=== PATIENT | female | born 1945 | race Caucasian/White ===

== ENCOUNTER 2016-11-03 14:01 | Outpatient (CLI) | payer MEDICARE | END 2016-11-03 14:02 | disposition home or self-care (01) | DX: I10 Essential (primary) hypertension (principal); I25.10 Atherosclerotic heart disease of native coronary artery without angina pectoris; R73.01 Impaired fasting glucose ==

== ENCOUNTER 2016-11-15 14:27 | Outpatient (CLI) | payer MEDICARE | END 2016-11-15 14:28 | disposition home or self-care (01) | DX: F32.9 Major depressive disorder, single episode, unspecified (principal); F41.9 Anxiety disorder, unspecified; R53.83 Other fatigue ==

== ENCOUNTER 2017-09-04 14:39 | Outpatient (CLI) | payer MEDICARE ==
--- NOTE | 2017-09-04 16:25 | XRAY Report ---
RIGHT HIP AND PELVIS: 09/04/2017 CLINICAL INDICATION: Pain. FINDINGS: Frontal view of the right hip and pelvis was obtained. A frogleg lateral view was also joe dvertently obtained. No previous pelvic film is available for comparison. There is mild bilateral hip osteoarthritis. There is no evidence of acute fracture or dislocation. No radiopaque foreign body is seen in the soft tissues. IMPRESSION: MILD RIGHT HIP OSTEOARTHRITIS. JOB #: [id number] EXT JOB #:
== END 2017-09-04 14:40 | disposition home or self-care (01) ==
LOC: DI 14:39
PROVIDERS: ATTEND Physician Assistant Medical
DX: M16.11 Unilateral primary osteoarthritis, right hip (principal)
CPT/HCPCS: 72170

== ENCOUNTER 2017-12-15 13:42 | Outpatient (CLI) | payer MEDICARE ==
--- NOTE | 2017-12-15 15:58 | XRAY Report ---
FOUR VIEW RIGHT WRIST: 12/15/2017 CLINICAL INDICATION: Fall, pain. FINDINGS: AP, lateral, oblique, scaphoid views of the right wrist demonstrate moderate osteoarthritis. An old, healed ulnar styloid fracture is noted. There is no evidence of acute fracture or dislocation. No foreign body is seen in the soft tissues. IMPRESSION: MODERATE OSTEOARTHRITIS. NO EVIDENCE OF ACUTE FRACTURE. TD: 12/15/2017 15:57
--- NOTE | 2017-12-15 16:00 | XRAY Report ---
THREE VIEW LEFT WRIST: 12/15/2017 CLINICAL INDICATION: Fall, pain. FINDINGS: AP, lateral, and oblique views of the left wrist demonstrate a minimally impacted distal radial fracture, without definite intraarticular extension, best seen on the lateral view. An ulnar styloid fracture is also noted. Osteoarthritis is seen in the wrist joints. No scaphoid fracture is seen. IMPRESSION: MINIMALLY IMPACTED DISTAL RADIAL FRACTURE. ULNAR STYLOID FRACTURE. TD: 12/15/2017 15:59
== END 2017-12-15 13:43 | disposition home or self-care (01) ==
LOC: DI.S 13:42
PROVIDERS: ATTEND Physician Assistant Medical
DX: S52.502A Unspecified fracture of the lower end of left radius, initial encounter for closed fracture (principal); S52.612A Displaced fracture of left ulna styloid process, initial encounter for closed fracture; M19.031 Primary osteoarthritis, right wrist; M19.032 Primary osteoarthritis, left wrist

== ENCOUNTER 2018-02-09 11:29 | Outpatient (CLI) | payer MEDICARE ==
[2018-02-09 17:56] LABS: BASOPHILS % (AUTO) 0.6 %; EOSINOPHILS # (AUTO) 0.2 10^3/uL (0.0-0.7); EOSINOPHILS % (AUTO) 2.8 %; HGB - HEMOGLOBIN 12.2 g/dL (12.0-16.0); LYMPHOCYTES # (AUTO) 1.5 10^3/uL (1.5-3.5); MEAN CORPUSCULAR HEMOGLOBIN 29.3 pg (27.0-31.0); MEAN CORPUSCULAR HGB CONC 32.9 g/dL (32.0-36.0); MEAN PLATELET VOLUME 10.2 fL (7.9-10.8); MONOCYTES # (AUTO) 0.5 10^3/uL (0.0-1.0); NEUTROPHILS # (AUTO) 3.8 10^3/uL (1.5-6.6); NEUTROPHILS % (AUTO) 62.6 %; PLT - PLATELET COUNT 168 10^3/uL (130-450); RED BLOOD COUNT 4.18 10^6/uL (4.20-5.40); RED CELL DISTRIBUTION WIDTH 14.8 % (12.0-15.0); WHITE BLOOD COUNT 6.1 x10^3/uL (4.8-10.8)
[2018-02-09 18:48] LABS: ALBUMIN/GLOBULIN RATIO 1.5 (1.0-2.2); ALKALINE PHOSPHATASE 61 IU/L (42-121); ALT ALANINE AMINOTRANSFERASE 24 IU/L (10-60); AST ASPARTATE AMINOTRANSFERASE 28 IU/L (10-42); BILIRUBIN,TOTAL 0.4 mg/dL (0.2-1.0); BUN - BLOOD UREA NITROGEN 17 mg/dL (6-20); CALCIUM 8.8 mg/dL (8.5-10.3); CARBON DIOXIDE - CO2 27 mmol/L (21-32); CHLORIDE 106 mmol/L (101-111); CHOLESTEROL 141 mg/dL; CREATININE 0.3 mg/dL (0.4-1.0); GFR - MDRD 219 (>89); GLUCOSE 95 mg/dL (70-100); HDL CHOLESTEROL 51 mg/dL; LDL CHOLESTEROL,CALCULATED 74 mg/dL; LDL/HDL RATIO 1.5 (<4.4); SODIUM 140 mmol/L (135-145); TOTAL PROTEIN 6.6 g/dL (6.7-8.2); VLDL CHOLESTEROL 16 mg/dL
[2018-02-09 18:49] LABS: CHOL/HDL RATIO 2.8 (<4.4)
== END 2018-02-09 11:30 | disposition home or self-care (01) ==
LOC: LAB.F 11:29
PROVIDERS: ATTEND Physician Assistant Medical
DX: Z00.00 Encounter for general adult medical examination without abnormal findings (principal)
CPT/HCPCS: 36415; 80053; 80061; 83721; 85025

== ENCOUNTER 2018-04-26 15:46 | Outpatient (CLI) | payer MEDICARE ==
--- NOTE | 2018-04-27 08:42 | XRAY Report ---
Procedure Date: 04/26/2018 Accession Number: [id number] / [id number] Procedure: XR - Hip w/Pelvis 2-3V LT CPT Code: FULL RESULT: EXAM: Hip w/Pelvis 2-3V LT DATE: 04/26/2018 4:07 PM CLINICAL HISTORY: CONTUSION L HIP, SEQUELA COMPARISON: 09/04/2017 TECHNIQUE: 1 view of the pelvis and 1 view of the hip. FINDINGS: Bones: Normal. No fracture or bone lesion. Joints: Mild osteoarthritis is stable. No dislocation. Soft Tissues: Normal. No soft tissue swelling. IMPRESSION: Stable mild osteoarthritis. RADIA
== END 2018-04-26 15:47 | disposition home or self-care (01) ==
LOC: DI 15:46
PROVIDERS: ATTEND Internal Medicine
DX: S70.02XS Contusion of left hip, sequela (principal); M16.12 Unilateral primary osteoarthritis, left hip; R10.30 Lower abdominal pain, unspecified

== ENCOUNTER 2018-07-23 12:59 | Outpatient (CLI) | payer MEDICARE ==
--- NOTE | 2018-07-23 15:59 | DEXA Report ---
Reason: ASYMPTOMATIC MENOPAUSAL STATE Procedure Date: 07/23/2018 Accession Number: [id number] / [id number] Procedure: DEX - Dexa Spine and/or Hip CPT Code: FULL RESULT: EXAM: Dexa Spine and/or Hip DATE: 07/23/2018 1:40 PM CLINICAL HISTORY: ASYMPTOMATIC MENOPAUSAL STATE TECHNIQUE: Dual energy x-ray absorptiometry (DXA) was performed on a SyncSum System. Regions measured are the AP Spine, femoral neck, and if needed forearm. COMPARISON: None. In accordance with the International Society for Clinical Densitometry (ISCD) guidelines, data from previous exams may be reanalyzed using current recommendations and techniques. This is done to allow a more accurate basis for comparison with the current study. FINDINGS: The data for the lumbar spine is as follows: BMD (g/cm/cm) T-SCORE Z-SCORE REGION L1 0.954 -1.5 0.4 L2 1.167 -0.3 1.6 L3 1.088 -0.9 0.9 L4 1.057 -1.2 0.7 TOTAL 1.068 -0.9 0.9 NOTE: All evaluable vertebrae are used for classification The data for the hip is as follows: BMD (g/cm/cm) T-SCORE Z-SCORE REGION Neck 0.731 -2.2 -0.3 TOTAL 0.799 -1.7 0.0 IMPRESSION: THE WHO CLASSIFICATION BASED ON THE INTERNATIONAL REFERENCE STANDARD IS OSTEOPENIA. THE FRACTURE RISK IS INCREASED. RECOMMENDATION: Patients with diagnosis of osteoporosis or osteopenia should have regular bone mineral density assessment. For those eligible for Medicare, routine testing is allowed once every 2 years. Testing frequency can be increased for patients who have rapidly progressing disease or for those who are receiving medical therapy to restore bone mass. COMMENT: World Health Organization (WHO) definitions for osteoporosis and osteopenia: NORMAL BMD: T-score at -1.0 or higher, fracture risk is low OSTEOPENIA BMD: T-score between -1.0 and -2.5, fracture risk is increased. OSTEOPOROSIS BMD: T-score at -2.5 or lower, fracture risk is high. National Osteoporosis Foundation recommends: 1. Obtain adequate dietary calcium (at least 1200 mg per day) and vitamin D (400-800 international units per day). 2. Participate, as appropriate, in regular weightbearing and muscle-strengthening exercise. 3. Avoid tobacco use and reduce alcohol and caffeine intake. 4. For more detailed information see the website at www.NOF.org.
== END 2018-07-23 13:00 | disposition home or self-care (01) ==
LOC: DI 12:59
PROVIDERS: ATTEND Internal Medicine
DX: M85.89 Other specified disorders of bone density and structure, multiple sites (principal); Z78.0 Asymptomatic menopausal state
CPT/HCPCS: 77080

== ENCOUNTER 2018-11-01 13:00 | Outpatient (CLI) | payer MEDICARE ==
--- NOTE | 2018-11-01 15:20 | XRAY Report ---
Reason: BACK PAIN,LUMBAR,CHRONIC Procedure Date: 11/01/2018 Accession Number: [id number] / [id number] Procedure: XR - Thoracic Spine 2 View CPT Code: FULL RESULT: EXAM: THORACIC SPINE RADIOGRAPHY EXAM DATE: 11/01/2018 02:23 PM. CLINICAL HISTORY: Chronic back pain. COMPARISON: None. TECHNIQUE: 2 views. FINDINGS: Alignment: Normal thoracic kyphosis. No vertebral body subluxation. Thoracic levoscoliosis between T4 and T12 measuring 12 degrees. Bones: Decreased bone mineralization. No fracture. No focal bone lesion. Disks: Multilevel disk space narrowing with marginal osteophyte formation. Soft Tissues: No focal opacities are evident in the lungs. The cardiac silhouette size is normal. Tortuous thoracic aorta. Post surgical changes in the sternum and mediastinum. IMPRESSION: 1. Multilevel thoracic degenerative disk disease. 2. No acute fracture or subluxation. 3. No chronic vertebral body fracture. 4. Other chronic degenerative and postsurgical changes. RADIA
--- NOTE | 2018-11-01 15:25 | XRAY Report ---
Reason: BACK PAIN,LUMBAR,CHRONIC Procedure Date: 11/01/2018 Accession Number: [id number] / [id number] Procedure: XR - Lumbar Spine Complete CPT Code: FULL RESULT: EXAM: LUMBOSACRAL SPINE RADIOGRAPHY EXAM DATE: 11/01/2018 02:23 PM. CLINICAL HISTORY: Chronic low back pain. COMPARISONS: None. TECHNIQUE: 4 views, including both oblique views. FINDINGS: Alignment: Normal lumbar lordosis. 9 mm anterolisthesis of L3 with respect to L2 and 9 mm anterolisthesis of L4 with respect to L3. No scoliosis. Bones: Five [id number]-[id number] lumbar vertebral bodies are present. Schmorl's node of the superior endplate of the L2 vertebral body. No fractures or other focal bone lesions. Decreased bone mineralization. Disks: Intervertebral disk space narrowing at T12-L1, L1-L2 and L2-L3. Facets: Bilateral facet arthrosis at L4-L5 and L5-S1. Sacroiliac Joints: Symmetric degenerative changes. Soft Tissues: Greater than physiologic stool throughout the colon. IMPRESSION: 1. Degenerative anterolisthesis of valve 3 with respect to L2 and L4 with respect to L3, both measuring 9 mm. 2. Multilevel degenerative disk disease, greatest at L2-L3. 3. Bilateral facet arthrosis at L4-L5 and L5-S1. RADIA
== END 2018-11-01 13:01 | disposition home or self-care (01) ==
LOC: DI 13:00
PROVIDERS: ATTEND Physician Assistant Medical
DX: M51.36 Other intervertebral disc degeneration, lumbar region (principal); M48.061 Spinal stenosis, lumbar region without neurogenic claudication; M47.896 Other spondylosis, lumbar region; M51.34 Other intervertebral disc degeneration, thoracic region
CPT/HCPCS: 72070; 72110

== ENCOUNTER 2019-02-14 09:48 | Outpatient (CLI) | payer MEDICARE ==
[2019-02-14 18:36] LABS: BASOPHILS % (AUTO) 0.7 %; EOSINOPHILS # (AUTO) 0.1 10^3/uL (0.0-0.7); EOSINOPHILS % (AUTO) 2.9 %; HGB - HEMOGLOBIN 13.7 g/dL (12.0-16.0); LYMPHOCYTES # (AUTO) 1.4 10^3/uL (1.5-3.5); LYMPHOCYTES % (AUTO) 28.4 %; MEAN CORPUSCULAR HEMOGLOBIN 29.4 pg (27.0-31.0); MEAN CORPUSCULAR HGB CONC 32.5 g/dL (32.0-36.0); MEAN CORPUSCULAR VOLUME 90.5 fL (81.0-99.0); MEAN PLATELET VOLUME 10.9 fL (7.9-10.8); MONOCYTES # (AUTO) 0.4 10^3/uL (0.0-1.0); MONOCYTES % (AUTO) 8.6 %; NEUTROPHILS # (AUTO) 2.9 10^3/uL (1.5-6.6); NEUTROPHILS % (AUTO) 59.4 %; PLT - PLATELET COUNT 172 10^3/uL (130-450); RED BLOOD COUNT 4.67 10^6/uL (4.20-5.40); RED CELL DISTRIBUTION WIDTH 14.7 % (12.0-15.0); WHITE BLOOD COUNT 4.8 x10^3/uL (4.8-10.8)
[2019-02-14 18:53] LABS: PLATELET ESTIMATE, MANUAL NORMAL (130-450,000) (NORMAL); PLATELET MORPHOLOGY 1+ GIANT PLATELETS (NORMAL); RBC MORPHOLOGY (MULTIPLE) NORMAL APPEARANCE (NORMAL)
[2019-02-14 18:55] LABS: ALBUMIN 4.2 g/dL (3.2-5.5); ALBUMIN/GLOBULIN RATIO 1.4 (1.0-2.2); ALKALINE PHOSPHATASE 102 IU/L (42-121); ALT ALANINE AMINOTRANSFERASE 24 IU/L (10-60); AST ASPARTATE AMINOTRANSFERASE 24 IU/L (10-42); BILIRUBIN,TOTAL 0.7 mg/dL (0.2-1.0); BUN - BLOOD UREA NITROGEN 15 mg/dL (6-20); CALCIUM 9.2 mg/dL (8.5-10.3); CARBON DIOXIDE - CO2 27 mmol/L (21-32); CHLORIDE 109 mmol/L (101-111); CHOLESTEROL 133 mg/dL; CREATININE 0.6 mg/dL (0.4-1.0); GFR - MDRD 98 (>89); GLUCOSE 112 mg/dL (70-100); HDL CHOLESTEROL 67 mg/dL; LDL CHOLESTEROL,CALCULATED 52 mg/dL; LDL/HDL RATIO 0.8 (<4.4); SODIUM 144 mmol/L (135-145); TOTAL PROTEIN 7.1 g/dL (6.7-8.2); VLDL CHOLESTEROL 14 mg/dL
== END 2019-02-14 09:49 | disposition home or self-care (01) ==
LOC: LAB.F 09:48
PROVIDERS: ATTEND Physician Assistant Medical
DX: I10 Essential (primary) hypertension (principal); E78.5 Hyperlipidemia, unspecified
CPT/HCPCS: 36415; 80053; 80061; 83721; 85025

== ENCOUNTER 2019-09-10 11:30 | Outpatient (CLI) | payer MEDICARE ==
--- NOTE | 2019-09-11 09:32 | Mammography Report ---
Reason: ROUTINE MAMMO Procedure Date: 09/10/2019 Accession Number: [id number] / [id number] Procedure: MGS - Screening Mammo Dig Bilat CPT Code: Final Report FULL RESULT: EXAM: Screening Mammo Dig Bilat DATE: 09/10/2019 11:50 AM CLINICAL HISTORY: Screening encounter. History of nulliparity. TECHNIQUE: (B) - Bilateral CC and MLO views were obtained. COMPARISON: 01/01/2014. PARENCHYMAL PATTERN: (A) - The breast(s) demonstrate(s) scattered fibroglandular densities. FINDINGS: There are coarse typically benign calcifications. There are no suspicious masses, calcifications, or areas of distortion. IMPRESSION: Benign findings. BI-RADS category 2. RECOMMENDATION: (ANNUAL) - Recommend routine annual screening mammography. BI-RADS CATEGORY: (2) - Benign Findings. STANDARD QUALIFYING STATEMENTS: 1. This examination was reviewed with the aid of Computer-Aided Detection (CAD). 2. A negative or benign imaging report should not preclude biopsy if clinically suspicious findings are present. 3. Dense breasts may obscure an underlying neoplasm. 4. This examination was reviewed without the aid of 3D breast imaging (tomosynthesis).
== END 2019-09-10 11:31 | disposition home or self-care (01) ==
LOC: DI.S 11:30
DX: Z12.31 Encounter for screening mammogram for malignant neoplasm of breast (principal)
CPT/HCPCS: 77067

== ENCOUNTER 2020-09-08 13:45 | Outpatient (CLI) | payer MEDICARE ==
[2020-09-08 19:59] LABS: BASOPHILS % (AUTO) 0.6 %; EOSINOPHILS # (AUTO) 0.2 10^3/uL (0.0-0.7); EOSINOPHILS % (AUTO) 3.1 %; HGB - HEMOGLOBIN 13.6 g/dL (12.0-16.0); LYMPHOCYTES # (AUTO) 1.7 10^3/uL (1.5-3.5); LYMPHOCYTES % (AUTO) 24.4 %; MEAN CORPUSCULAR HEMOGLOBIN 29.7 pg (27.0-31.0); MEAN CORPUSCULAR HGB CONC 32.2 g/dL (32.0-36.0); MEAN CORPUSCULAR VOLUME 92.1 fL (81.0-99.0); MEAN PLATELET VOLUME 11.7 fL (7.9-10.8); MONOCYTES # (AUTO) 0.6 10^3/uL (0.0-1.0); MONOCYTES % (AUTO) 9.5 %; NEUTROPHILS # (AUTO) 4.2 10^3/uL (1.5-6.6); NEUTROPHILS % (AUTO) 62.1 %; PLT - PLATELET COUNT 230 10^3/uL (130-450); RED BLOOD COUNT 4.58 10^6/uL (4.20-5.40); RED CELL DISTRIBUTION WIDTH 13.4 % (12.0-15.0); WHITE BLOOD COUNT 6.8 x10^3/uL (4.8-10.8)
[2020-09-08 20:16] LABS: ALBUMIN 4.3 g/dL (3.2-5.5); ALBUMIN/GLOBULIN RATIO 1.5 (1.0-2.2); ALKALINE PHOSPHATASE 74 IU/L (42-121); ALT ALANINE AMINOTRANSFERASE 33 IU/L (10-60); AST ASPARTATE AMINOTRANSFERASE 25 IU/L (10-42); BUN - BLOOD UREA NITROGEN 20 mg/dL (6-20); CALCIUM 8.9 mg/dL (8.5-10.3); CARBON DIOXIDE - CO2 28 mmol/L (21-32); CHLORIDE 104 mmol/L (101-111); CHOL/HDL RATIO 2.3 (<4.4); CHOLESTEROL 144 mg/dL; CREATININE 0.8 mg/dL (0.4-1.0); GLUCOSE 95 mg/dL (70-100); HDL CHOLESTEROL 64 mg/dL; LDL CHOLESTEROL,CALCULATED 64 mg/dL; SODIUM 139 mmol/L (135-145); TOTAL PROTEIN 7.1 g/dL (6.7-8.2); VLDL CHOLESTEROL 16 mg/dL
== END 2020-09-08 13:46 | disposition home or self-care (01) ==
LOC: LAB.S 13:45
PROVIDERS: ATTEND Physician Assistant
DX: Z00.00 Encounter for general adult medical examination without abnormal findings (principal); E78.5 Hyperlipidemia, unspecified; I10 Essential (primary) hypertension; I25.10 Atherosclerotic heart disease of native coronary artery without angina pectoris
CPT/HCPCS: 36415; 80053; 80061; 83721; 84443; 85025

== ENCOUNTER 2020-12-23 08:00 | Outpatient (CLI) | payer MEDICARE ==
--- NOTE | 2020-12-23 14:00 | XRAY Report ---
PROCEDURE: Hand 3 View LT INDICATIONS: PAIN IN LEFT HAND TECHNIQUE: 3 views of the hand(s) acquired. COMPARISON: None FINDINGS: Bones: Impacted and slightly comminuted fractures are seen involving second through fifth proximal ph alangeal bases with slight volar and lateral angulation and displacement at fracture site. Osteoarthr itic changes are noted throughout left hand and wrist. Mild osteopenia. No suspicious bony lesions. Soft tissues: No suspicious soft tissue calcifications. IMPRESSION: Impacted, slightly comminuted fractures involving second through fifth proximal phalangeal base with angulation and displacement as above. Reviewed by: Tres Zafar MD on 12/23/2020 1:59 PM PST Approved by: Tres Zafar MD on 12/23/2020 1:59 PM PST Station ID: [id number]
== END 2020-12-23 23:59 | disposition home or self-care (01) ==
LOC: DI.S 08:00
PROVIDERS: ATTEND Physician Assistant
DX: M79.642 Pain in left hand (principal); S62.611A Displaced fracture of proximal phalanx of left index finger, initial encounter for closed fracture; S62.613A Displaced fracture of proximal phalanx of left middle finger, initial encounter for closed fracture; S62.615A Displaced fracture of proximal phalanx of left ring finger, initial encounter for closed fracture; S62.617A Displaced fracture of proximal phalanx of left little finger, initial encounter for closed fracture

== ENCOUNTER 2020-12-24 07:00 | Outpatient (CLI) | payer MEDICARE ==
--- NOTE | 2020-12-24 18:32 | XRAY Report ---
PROCEDURE: Hand 3 View LT INDICATIONS: LT HAND PAIN TECHNIQUE: 3 views of the hand(s) acquired. COMPARISON: 12/23/2020 FINDINGS: Bones: There is interval cast placement and reduction of previously noted second through fifth proxim al phalangeal base fractures with improved alignment of the proximal phalanges. No new fracture is se en. No dislocation. No suspicious bony lesions. Soft tissues: No suspicious soft tissue calcifications. IMPRESSION: Interval reduction of previously noted second through fifth proximal phalangeal base fractures with s lightly improved left hand alignment. Interval cast placement. No new fracture or dislocation. Reviewed by: Tres Zafar MD on 12/24/2020 6:31 PM PST Approved by: Tres Zafar MD on 12/24/2020 6:31 PM PST Station ID: [id number]
== END 2020-12-24 23:59 | disposition home or self-care (01) ==
LOC: DI.N 07:00
PROVIDERS: ATTEND Physician Assistant
DX: S62.617A Displaced fracture of proximal phalanx of left little finger, initial encounter for closed fracture (principal)

== ENCOUNTER 2020-12-29 08:00 | Outpatient (CLI) | payer MEDICARE ==
--- NOTE | 2020-12-29 18:12 | XRAY Report ---
PROCEDURE: Facial Bones Complete INDICATIONS: CONTUSION OF OTHER PARTS OF HEAD TECHNIQUE: 4 views of the facial bones were acquired. COMPARISON: None FINDINGS: Sinuses: Visualized sinuses demonstrate no air-fluid levels or mucosal thickening. Bones: No fractures. No suspicious bony lesions. Orbital rims and zygomatic arches appear intact. Soft tissues: No suspicious soft tissue densities. IMPRESSION: No trauma found. Reviewed by: Tony Mederos MD on 12/29/2020 5:11 PM [facility] Approved by: Tony Mederos MD on 12/29/2020 5:11 PM [facility] Station ID: [id number]
== END 2020-12-29 23:59 | disposition home or self-care (01) ==
LOC: DI.S 08:00
PROVIDERS: ATTEND Physician Assistant Medical
DX: S00.83XA Contusion of other part of head, initial encounter (principal)

== ENCOUNTER 2021-01-18 07:00 | Outpatient (CLI) | payer MEDICARE ==
--- NOTE | 2021-01-18 13:01 | XRAY Report ---
PROCEDURE: Hand 3 View LT INDICATIONS: DISPLACED FX OF PROXIMAL PHALANX OF 5TH DIGIT TECHNIQUE: 3 views of the hand(s) acquired. COMPARISON: Left hand plain films 12/24/2020. FINDINGS: Bones: Healing fractures are seen at the base of the proximal phalanx of the second, third, fourth an d fifth digits in near normal anatomic alignment. Blurring of the fracture planes shows early healing . No suspicious bony lesions. Soft tissues: No suspicious soft tissue calcifications. IMPRESSION: Early healing with near normal anatomic alignment established at the base of the second through fifth proximal phalanx structures. No articular surface malalignment is seen. Reviewed by: Tony Mederos MD on 01/18/2021 12:59 PM PDT Approved by: Tony Mederos MD on 01/18/2021 12:59 PM PDT Station ID: [id number]
== END 2021-01-18 23:59 | disposition home or self-care (01) ==
LOC: DI.N 07:00
PROVIDERS: ATTEND Orthopaedic Surgery
DX: S62.617A Displaced fracture of proximal phalanx of left little finger, initial encounter for closed fracture (principal); S62.615A Displaced fracture of proximal phalanx of left ring finger, initial encounter for closed fracture; S62.613A Displaced fracture of proximal phalanx of left middle finger, initial encounter for closed fracture; S62.311A Displaced fracture of base of second metacarpal bone, left hand, initial encounter for closed fracture

== ENCOUNTER 2021-03-02 13:02 | Outpatient (CLI) | payer MEDICARE ==
--- NOTE | 2021-03-02 18:23 | XRAY Report ---
PROCEDURE: Hand 3 View LT INDICATIONS: FX OF LEFT WRIST AND HAND TECHNIQUE: 3 views of the hand(s) acquired. COMPARISON: 01/18/2021, 12/24/2020 and 12/23/2020 FINDINGS: Bones: Fractures involving the bases of the second through fifth proximal phalanges redemonstrated. A lignment of the fractures is stable compared to prior exam obtained 01/18/2021. Fracture lucency is ev ident, less conspicuous compatible with healing. First CMC, triscaphe and radiocarpal joint osteoarth ritis. Soft tissues: No suspicious soft tissue calcifications. IMPRESSION: Healing second through fifth proximal phalange fractures. Reviewed by: Ina Quezada MD, PhD on 03/02/2021 6:22 PM PDT Approved by: Ina Quezada MD, PhD on 03/02/2021 6:22 PM PDT Station ID: [id number]
== END 2021-03-02 23:59 | disposition home or self-care (01) ==
LOC: DI.N 13:02
PROVIDERS: ATTEND Orthopaedic Surgery
DX: S62.611D Displaced fracture of proximal phalanx of left index finger, subsequent encounter for fracture with routine healing (principal); S62.633D Displaced fracture of distal phalanx of left middle finger, subsequent encounter for fracture with routine healing; S62.635D Displaced fracture of distal phalanx of left ring finger, subsequent encounter for fracture with routine healing; S62.637D Displaced fracture of distal phalanx of left little finger, subsequent encounter for fracture with routine healing

== ENCOUNTER 2021-07-09 11:32 | Outpatient (CLI) | payer MEDICARE | END 2021-07-09 23:59 | disposition home or self-care (01) | LOC: LAB 11:32 | PROVIDERS: ATTEND Emergency Medicine | DX: R39.9 Unspecified symptoms and signs involving the genitourinary system (principal) | CPT/HCPCS: 87086 ==

== ENCOUNTER 2021-07-20 14:59 | Outpatient (CLI) | payer MEDICARE ==
[2021-07-20 20:09] LABS: BUN - BLOOD UREA NITROGEN 25 mg/dL (6-20); CALCIUM 9.1 mg/dL (8.5-10.3); CARBON DIOXIDE - CO2 29 mmol/L (21-32); CHLORIDE 97 mmol/L (101-111); CHOL/HDL RATIO 2.4 (<4.4); CHOLESTEROL 127 mg/dL; GFR - MDRD 54 (>89); GLUCOSE 141 mg/dL (70-100); HDL CHOLESTEROL 52 mg/dL; LDL CHOLESTEROL,CALCULATED 63 mg/dL; LDL/HDL RATIO 1.2 (<4.4); POTASSIUM 2.9 mmol/L (3.5-5.0); SODIUM 136 mmol/L (135-145); TRIGLYCERIDES 61 mg/dL; VLDL CHOLESTEROL 12 mg/dL
== END 2021-07-20 15:00 | disposition home or self-care (01) ==
LOC: LAB.S 14:59
PROVIDERS: ATTEND Internal Medicine Cardiovascular Disease
DX: I10 Essential (primary) hypertension (principal)
CPT/HCPCS: 36415; 80048; 80061; 83721

== ENCOUNTER 2021-08-06 15:48 | Outpatient (CLI) | payer MEDICARE ==
[2021-08-06 20:34] LABS: CALCIUM 8.8 mg/dL (8.5-10.3); CREATININE 0.7 mg/dL (0.4-1.0); POTASSIUM 4.2 mmol/L (3.5-5.0)
== END 2021-08-06 15:49 | disposition home or self-care (01) ==
LOC: LAB.S 15:48
PROVIDERS: ATTEND Internal Medicine Cardiovascular Disease
DX: I10 Essential (primary) hypertension (principal); I25.10 Atherosclerotic heart disease of native coronary artery without angina pectoris; I48.0 Paroxysmal atrial fibrillation; R06.00 Dyspnea, unspecified
CPT/HCPCS: 36415; 80048

== ENCOUNTER 2022-11-04 13:37 | Outpatient (CLI) | payer MEDICARE ==
[2022-11-04 19:58] LABS: BASOPHILS % (AUTO) 0.6 %; EOSINOPHILS # (AUTO) 0.1 10^3/uL (0.0-0.7); EOSINOPHILS % (AUTO) 1.7 %; HCT - HEMATOCRIT 38.5 % (37.0-47.0); HGB - HEMOGLOBIN 12.2 g/dL (12.0-16.0); LYMPHOCYTES # (AUTO) 1.4 10^3/uL (1.5-3.5); LYMPHOCYTES % (AUTO) 25.1 %; MEAN CORPUSCULAR HGB CONC 31.7 g/dL (32.0-36.0); MEAN CORPUSCULAR VOLUME 94.6 fL (81.0-99.0); MEAN PLATELET VOLUME 12.6 fL (7.9-10.8); MONOCYTES # (AUTO) 0.4 10^3/uL (0.0-1.0); MONOCYTES % (AUTO) 6.8 %; NEUTROPHILS # (AUTO) 3.6 10^3/uL (1.5-6.6); NEUTROPHILS % (AUTO) 65.6 %; PLT - PLATELET COUNT 195 10^3/uL (130-450); RED BLOOD COUNT 4.07 10^6/uL (4.20-5.40); RED CELL DISTRIBUTION WIDTH 13.9 % (12.0-15.0); WHITE BLOOD COUNT 5.4 x10^3/uL (4.8-10.8)
[2022-11-04 20:16] LABS: ALBUMIN 4.5 g/dL (3.2-5.5); ALBUMIN/GLOBULIN RATIO 1.5 (1.0-2.2); ALKALINE PHOSPHATASE 62 IU/L (42-121); ALT ALANINE AMINOTRANSFERASE 23 IU/L (10-60); AST ASPARTATE AMINOTRANSFERASE 23 IU/L (10-42); BILIRUBIN,TOTAL 1.2 mg/dL (0.2-1.0); BUN - BLOOD UREA NITROGEN 20 mg/dL (6-20); CALCIUM 9.1 mg/dL (8.5-10.3); CARBON DIOXIDE - CO2 27 mmol/L (21-32); CHLORIDE 104 mmol/L (101-111); CHOLESTEROL 117 mg/dL; CREATININE 0.9 mg/dL (0.4-1.0); GFR - MDRD 61 (>89); GLUCOSE 121 mg/dL (70-100); HDL CHOLESTEROL 59 mg/dL; LDL CHOLESTEROL,CALCULATED 48 mg/dL; LDL/HDL RATIO 0.8 (<4.4); POTASSIUM 4.2 mmol/L (3.5-5.0); SODIUM 138 mmol/L (135-145); TOTAL PROTEIN 7.5 g/dL (6.7-8.2); TRIGLYCERIDES 51 mg/dL; VLDL CHOLESTEROL 10 mg/dL
[2022-11-04 20:29] LABS: THYROID STIMULATING HORMONE 0.33 uIU/mL (0.34-5.60)
[2022-11-04 21:11] LABS: FREE T4 (FREE THYROXINE) 0.93 ng/dL (0.58-1.64)
== END 2022-11-04 13:38 | disposition home or self-care (01) ==
LOC: LAB.S 13:37
PROVIDERS: ATTEND Registered Nurse
DX: I10 Essential (primary) hypertension (principal); E78.5 Hyperlipidemia, unspecified; Z79.899 Other long term (current) drug therapy; Z13.29 Encounter for screening for other suspected endocrine disorder
CPT/HCPCS: 36415; 80053; 80061; 83721; 84439; 84443; 85025

== ENCOUNTER 2023-06-13 08:00 | Outpatient (CLI) | payer MEDICARE ==
--- NOTE | 2023-06-14 14:33 | XRAY Report ---
PROCEDURE: Shoulder 3 View RT INDICATIONS: SPRAIN OF RIGHT SHOULDER TECHNIQUE: 3 views of the shoulder were acquired. COMPARISON: None. FINDINGS: Bones: No fractures or dislocations. No suspicious bony lesions. Visualized ribs appear intact. Severe acromioclavicular and moderate glenohumeral degenerative narrowing. Minimal osteophytes. No er osions. Soft tissues: No suspicious soft tissue calcifications. IMPRESSION: Acromioclavicular and glenohumeral arthritic change. Reviewed by: Patsy Castro MD on 06/14/2023 2:32 PM PDT Approved by: Patsy Castro MD on 06/14/2023 2:32 PM PDT Station ID: [id number]
== END 2023-06-13 23:59 | disposition home or self-care (01) ==
LOC: DI.S 08:00
PROVIDERS: ATTEND Physician Assistant Medical
DX: S43.491A Other sprain of right shoulder joint, initial encounter (principal); M19.011 Primary osteoarthritis, right shoulder

== ENCOUNTER 2023-08-21 08:00 | Outpatient (CLI) | payer MEDICARE ==
--- NOTE | 2023-08-21 16:19 | XRAY Report ---
PROCEDURE: Shoulder 1 View RT INDICATIONS: RIGHT SHOULDER PAIN AXIAL VIEW ONLY TECHNIQUE: 1 views of the shoulder were acquired. COMPARISON: Shoulder x-ray 06/13/2023, MRI 07/17/2023 FINDINGS: Bones: No fractures or dislocations. No suspicious bony lesions. Visualized ribs appear intact. Soft tissues: No suspicious soft tissue calcifications. The visualized lungs are within normal limi ts. IMPRESSION: Stable appearance of alignment. No fracture. Reviewed by: Patsy Castro MD on 08/21/2023 4:18 PM PDT Approved by: Patsy Castro MD on 08/21/2023 4:18 PM PDT Station ID: [id number]
== END 2023-08-21 23:59 | disposition home or self-care (01) ==
LOC: DI.WOS 08:00
PROVIDERS: ATTEND Orthopaedic Surgery
DX: M25.511 Pain in right shoulder (principal)

== ENCOUNTER 2023-11-02 12:33 | Outpatient (CLI) | payer MEDICARE ==
[2023-11-02 15:34] LABS: CALCIUM 9.3 mg/dL (8.5-10.3); CREATININE 0.9 mg/dL (0.6-1.3); POTASSIUM 4.5 mmol/L (3.5-4.5)
== END 2023-11-02 12:34 | disposition home or self-care (01) ==
LOC: LAB.S 12:33
PROVIDERS: ATTEND Internal Medicine Cardiovascular Disease
DX: R06.09 Other forms of dyspnea (principal)
CPT/HCPCS: 36415; 80048

== ENCOUNTER 2023-11-30 12:45 | Outpatient (CLI) | payer MEDICARE ==
[2023-11-30 12:58] LABS: BASOPHILS % (AUTO) 0.6 %; EOSINOPHILS # (AUTO) 0.1 10^3/uL (0.0-0.7); EOSINOPHILS % (AUTO) 2.4 %; HGB - HEMOGLOBIN 11.8 g/dL (12.0-16.0); LYMPHOCYTES # (AUTO) 1.7 10^3/uL (1.5-3.5); LYMPHOCYTES % (AUTO) 32.5 %; MEAN CORPUSCULAR HEMOGLOBIN 27.8 pg (27.0-31.0); MEAN CORPUSCULAR HGB CONC 31.1 g/dL (32.0-36.0); MEAN CORPUSCULAR VOLUME 89.4 fL (81.0-99.0); MEAN PLATELET VOLUME 12.4 fL (7.9-10.8); MONOCYTES # (AUTO) 0.6 10^3/uL (0.0-1.0); NEUTROPHILS # (AUTO) 2.7 10^3/uL (1.5-6.6); NEUTROPHILS % (AUTO) 53.3 %; PLT - PLATELET COUNT 151 10^3/uL (130-450); RED BLOOD COUNT 4.25 10^6/uL (4.20-5.40); WHITE BLOOD COUNT 5.1 x10^3/uL (4.8-10.8)
[2023-11-30 13:26] LABS: THYROID STIMULATING HORMONE 1.91 uIU/mL (0.34-5.60)
[2023-11-30 13:32] LABS: FERRITIN 36.8 ng/mL (11.0-306.8)
[2023-11-30 13:50] LABS: RBC MORPHOLOGY (MULTIPLE) 2+ ANISOCYTOSIS (NORMAL); SLIDE REVIEW? Indicated
--- NOTE | 2023-11-30 21:38 | XRAY Report ---
PROCEDURE: Chest 2V INDICATIONS: SHORTNESSOF BREATH TECHNIQUE: 2 views of the chest were acquired. COMPARISON: None. FINDINGS: Surgical changes and devices: Sternal wires. Lungs and pleura: No pleural effusions or pneumothorax. Lungs are clear. Mediastinum: Mediastinal contours appear normal. Heart size is enlarged. Bones and chest wall: No suspicious bony lesions. Overlying soft tissues appear unremarkable. IMPRESSION: No acute cardiopulmonary process. Reviewed by: Patsy Castro MD on 11/30/2023 9:37 PM [facility] Approved by: Patsy Castro MD on 11/30/2023 9:37 PM [facility] Station ID: [id number]
== END 2023-11-30 12:46 | disposition home or self-care (01) ==
LOC: LAB 12:45
PROVIDERS: ATTEND Internal Medicine Cardiovascular Disease
DX: R06.09 Other forms of dyspnea (principal)
CPT/HCPCS: 36415; 82728; 83880; 84443; 85025

== ENCOUNTER 2023-12-20 13:44 | Outpatient (CLI) | payer MEDICARE | END 2023-12-20 13:45 | disposition home or self-care (01) | LOC: LAB.S 13:44 | PROVIDERS: ATTEND Registered Nurse | DX: E78.5 Hyperlipidemia, unspecified (principal); Z79.899 Other long term (current) drug therapy; Z13.29 Encounter for screening for other suspected endocrine disorder | CPT/HCPCS: 36415; 80053; 80061; 83721; 84443; 85025 ==

== ENCOUNTER 2024-01-25 12:38 | Outpatient (CLI) | payer MEDICARE | END 2024-01-25 12:39 | disposition home or self-care (01) | LOC: DI 12:38 | PROVIDERS: ATTEND Internal Medicine Cardiovascular Disease | DX: R06.02 Shortness of breath (principal); I25.10 Atherosclerotic heart disease of native coronary artery without angina pectoris; I35.1 Nonrheumatic aortic (valve) insufficiency; I48.91 Unspecified atrial fibrillation; I51.7 Cardiomegaly; I87.8 Other specified disorders of veins | CPT/HCPCS: 93307 ==